=== PATIENT | female | born 1925 | race Caucasian/White ===

== ENCOUNTER 2017-03-05 07:08 | Inpatient (IN) | payer MEDICARE, MEDICAID ==
[~2017-03-05] VITALS: Ht 157.5 cm; Wt 53.5 kg
[~2017-03-05 07:08] MED LIST: AMIO200T42 PO; ASPI-496 PO; CARV3.1212 PO; CARV3.122 PO; CEFD300C37 PO; CELE100C PO; CHOL3000 PO; DOCU-131 PO; FURO-93 PO; HYDR-3307 PO; HYDR-879 PO; LEVO25TA2 PO; MAGN400T7 PO; ONDA4TAB10 PO; SPIR25TA PO
[2017-03-05] MEDS ORDERED: DILTIAZEM 5 MG/ML, 5ML ONE ×2 (07:17→08:42)
[2017-03-05 07:43] LABS: HEMOGLOBIN 12.7 g/dL (11.7-16.4); WHITE BLOOD COUNT 9.3 x10^3/uL (3.4-10)
[2017-03-05 07:45] LABS: BLOOD UREA NITROGEN 39 mg/dL (7-18)
[2017-03-05 07:51] LABS: IS PT STATUS REG ER OR PRE ER? YES
[2017-03-05] MEDS ORDERED: LABETALOL 5MG/ML, 20ML IVPush ONE (08:00)
[2017-03-05] MEDS ORDERED: DILTIAZEM 5 MG/ML, 5ML IV ONE ×3 (08:00→09:00)
[2017-03-05] MEDS ORDERED: ACET-1770 PO (08:33)
[2017-03-05] MEDS ORDERED: ONDA4TAB7 PO (08:33)
[2017-03-05] MEDS ORDERED: MAGN400T7 PO (08:33)
[2017-03-05] MEDS ORDERED: ACYC-114 PO (08:33)
[2017-03-05] MEDS ORDERED: OMEP-110 PO (08:33)
[2017-03-05] MEDS ORDERED: CRAN1CAP2 PO (08:33)
[2017-03-05] MEDS ORDERED: BUME1TAB21 PO (08:33)
[2017-03-05] MEDS ORDERED: SODIUM CHLORIDE FLUSH 10ML SYR IVF PRN (09:00)
[2017-03-05] MEDS ORDERED: ONDANSETRON 4 MG TABLET PO PRN (10:30)
[2017-03-05] MEDS ORDERED: DOCUSATE 100 MG CAPSULE PO PRN (10:30)
[2017-03-05] MEDS ORDERED: ACETAMINOPHEN 325 MG TABLET PO PRN (10:30)
[2017-03-05] MEDS ORDERED: BISACODYL 10 MG SUPP PR PRN (10:30)
[2017-03-05] MEDS ORDERED: POLYETHYLENE GLYCOL 17 GM PACKET PO PRN (10:30)
[2017-03-05] MEDS ORDERED: ENOXAPARIN 40 MG/0.4 ML SQ SCH (10:30)
[2017-03-05 10:55] VITALS: BP 114/72
[2017-03-05 11:47] LABS: IS PT STATUS REG ER OR PRE ER? NO
[2017-03-05] MEDS: SODIUM CHLORIDE 0.9% 1,000 ML IV SCH (13:37)
[2017-03-05 13:46] LABS: PATH.CAST-FLAG NOT PRESENT; SPERM-FLAG NOT PRESENT; SRC-FLAG NOT PRESENT; XTAL-FLAG NOT PRESENT; YLC-FLAG NOT PRESENT
[2017-03-05 14:45] VITALS: BP 141/80
[2017-03-05] MEDS: CEFTRIAXONE PMX 1GM/50ML 50 ML IV SCH (15:37)
[2017-03-05 16:52] LABS: IS PT STATUS REG ER OR PRE ER? NO
[2017-03-05 18:39] VITALS: BP 156/85
[2017-03-05] MEDS ORDERED: ENOXAPARIN 60 MG/0.6 ML SQ SCH (20:00)
[2017-03-05] MEDS: Enoxaparin 1 mg/kg protocol SQ SCH (20:00)
[2017-03-05] MEDS: HYDROcodone/APAP 10/325 MG TABLET PO SCH (20:54)
[2017-03-05] MEDS: MAGNESIUM OXIDE 400 MG TABLET PO SCH (20:54)
[2017-03-05] MEDS: DOCUSATE CALCIUM 240 MG CAPSULE PO SCH (20:55)
[2017-03-05 22:50] LABS: IS PT STATUS REG ER OR PRE ER? NO
[2017-03-06] VITALS (8 sets, daily range): BP systolic 140–169; BP diastolic 64–100
[2017-03-06] MEDS ORDERED: hydrALAzine 20 MG/ML, 1ML IV PRN (03:00)
[2017-03-06] MEDS ORDERED: HALOPERIDOL 5 MG/ML ONE (04:09)
[2017-03-06] MEDS ORDERED: BUMETANIDE 0.25 MG/ML, 4ML IV ONE (04:13)
[2017-03-06] MEDS ORDERED: HALOPERIDOL 5 MG/ML IV PRN (04:30)
[2017-03-06 04:52] LABS: ASPARTATE AMINO TRANSFERASE 94 U/L (15-37); BLOOD UREA NITROGEN 33 mg/dL (7-18)
[2017-03-06 04:53] LABS: HEMATOCRIT 38.2 % (34.6-47.8); HEMOGLOBIN 12.5 g/dL (11.7-16.4); WHITE BLOOD COUNT 11.7 x10^3/uL (3.4-10)
[2017-03-06 04:57] LABS: IS PT STATUS REG ER OR PRE ER? NO
[2017-03-06] MEDS ORDERED: DILTIAZEM 5 MG/ML, 5ML ONE (05:06)
[2017-03-06] MEDS ORDERED: DILTIAZEM 5 MG/ML, 5ML IVPush ONE (05:30)
[2017-03-06] MEDS ORDERED: DILTIAZEM 125 MG in SODIUM CHLORIDE 0.9% 100 ML IV PRN ×2 (05:30→23:30)
[2017-03-06] MEDS ORDERED: LEVOTHYROXINE 125 MCG TABLET PO SCH (06:00)
[2017-03-06] MEDS: SODIUM CHLORIDE 0.9% 1,000 ML IV SCH (06:20)
[2017-03-06] MEDS: Enoxaparin 1 mg/kg protocol SQ SCH (08:00)
[2017-03-06] MEDS ORDERED: OMEPRAZOLE 20 MG CAPSULE.DR PO SCH (09:00)
[2017-03-06] MEDS ORDERED: BUMETANIDE 1 MG TABLET PO SCH (09:00)
[2017-03-06] MEDS: DOCUSATE CALCIUM 240 MG CAPSULE PO SCH ×2 (09:00→21:00)
[2017-03-06] MEDS: MAGNESIUM OXIDE 400 MG TABLET PO SCH ×2 (09:00→21:00)
[2017-03-06] MEDS ORDERED: ACYCLOVIR 400 MG TABLET PO SCH (09:00)
[2017-03-06] MEDS ORDERED: ASPIRIN 81 MG TABLET EC PO SCH (09:00)
[2017-03-06] MEDS: DILTIAZEM 30 MG TABLET PO SCH ×3 (11:00→21:00)
[2017-03-06] MEDS ORDERED: FUROSEMIDE 20 MG/2 ML IV ONE (11:00)
[2017-03-06] MEDS: LORazepam 2 MG/ML, 1ML IVPush PRN ×2 (14:32→21:53)
[2017-03-06] MEDS: CEFTRIAXONE PMX 1GM/50ML 50 ML IV SCH (16:17)
[2017-03-06] MEDS: HYDROcodone/APAP 10/325 MG TABLET PO SCH (21:00)
[2017-03-06] MEDS ORDERED: ENOXAPARIN 60 MG/0.6 ML SQ SCH (21:00)
[2017-03-07 00:17] VITALS: BP 138/60
[2017-03-07] MEDS ORDERED: ONDANSETRON 2MG/ML, 2ML ONE (00:46)
[2017-03-07] MEDS: MORPHINE SULFATE 4 MG/ML, 1ML IVPush PRN ×4 (00:51→09:08)
[2017-03-07] MEDS ORDERED: ONDANSETRON 2MG/ML, 2ML IVPush PRN (01:00)
[2017-03-07] MEDS: DILTIAZEM 30 MG TABLET PO SCH (04:56)
[2017-03-07] MEDS: LORazepam 2 MG/ML, 1ML IVPush PRN (05:43)
[2017-03-07] MEDS ORDERED: LEVOTHYROXINE 100 MCG TABLET PO SCH (06:00)
[2017-03-07] MEDS ORDERED: morphine SULFATE 125 MG in SODIUM CHLORIDE 0.9% 237.5 ML IV PRN (10:15)
[2017-03-07] MEDS ORDERED: SCOPOLAMINE 1MG PATCH TD PRN (10:30)
[2017-03-07] MEDS ORDERED: morphine SULFATE ORAL.CONC 20 MG/ML BC PRN (10:30)
[2017-03-07] MEDS ORDERED: LORazepam 2 MG/ML, 1ML IVPush PRN (10:30)
[2017-03-07] MEDS ORDERED: PROCHLORPERAZINE 25 MG SUPP PR PRN (10:30)
[2017-03-07] MEDS ORDERED: ATROPINE OPHTH SOLN 1%, 5ML BC PRN (10:30)
[2017-03-07] MEDS ORDERED: SCOPOLAMINE 1MG PATCH TD SCH ×2 (10:30)
== END 2017-03-07 20:37 | disposition expired | DRG 291 ==
LOC: ED 07:12 → EDIP 08:58 → 5SO 10:17
PROVIDERS: ADMIT Hospitalist; ATTEND Hospitalist
DX: I13.0 Hypertensive heart and chronic kidney disease with heart failure and stage 1 through stage 4 chronic kidney disease, or unspecified chronic kidney disease (principal); E43 Unspecified severe protein-calorie malnutrition; J84.9 Interstitial pulmonary disease, unspecified; E46 Unspecified protein-calorie malnutrition; I27.20 Pulmonary hypertension, unspecified; I95.9 Hypotension, unspecified; D68.69 Other thrombophilia; I42.9 Cardiomyopathy, unspecified; R71.0 Precipitous drop in hematocrit; L97.509 Non-pressure chronic ulcer of other part of unspecified foot with unspecified severity; I48.91 Unspecified atrial fibrillation; I50.9 Heart failure, unspecified; Z99.81 Dependence on supplemental oxygen; D75.89 Other specified diseases of blood and blood-forming organs; E03.9 Hypothyroidism, unspecified; G89.29 Other chronic pain; I25.10 Atherosclerotic heart disease of native coronary artery without angina pectoris; T46.2X5A Adverse effect of other antidysrhythmic drugs, initial encounter; N18.9 Chronic kidney disease, unspecified; Z51.5 Encounter for palliative care; Z66 Do not resuscitate; Z82.3 Family history of stroke; Z82.49 Family history of ischemic heart disease and other diseases of the circulatory system; Z87.891 Personal history of nicotine dependence; Z91.81 History of falling; Z95.1 Presence of aortocoronary bypass graft; Z95.2 Presence of prosthetic heart valve; Z99.3 Dependence on wheelchair; Z79.82 Long term (current) use of aspirin; Z79.899 Other long term (current) drug therapy; Z88.2 Allergy status to sulfonamides; Y92.89 Other specified places as the place of occurrence of the external cause; Z68.21 Body mass index [BMI] 21.0-21.9, adult
CPT/HCPCS: 36415; 71010; 80047; 80048; 80053; 81001; 82040; 82607; 82746; 83735; 83880; 84100; 84439; 84443; 84484; 85025; 85610; 85730; 87077; 87086; 87186; 93005; 93306; 96374; 96375; 96376; J0696; J1650; Q0162; J0360; J1630; J1940; J2060; J2270; J7030; J7050